=== PATIENT | female | born 1980 | race Caucasian/White ===

== ENCOUNTER 2020-06-17 09:32 | Emergency (ER) | payer MEDICAID ==
[~2020-06-17] VITALS: Ht 167.6 cm; Wt 74.4 kg
[2020-06-17 10:00] VITALS: BP 144/78
--- NOTE | 2020-06-17 10:03 | NUR ---
TO LOBBY A/W BED VIA W/C
[2020-06-17 10:15] VITALS: BP 144/78
--- NOTE | 2020-06-17 10:40 | NUR ---
SEEN AND EXAMINED BY BUSTER WITH ORDERS AND CARRIED OUT
[2020-06-17] MEDS ORDERED: diazePAM 5 MG TAB PO ONE (10:50)
[2020-06-17] MEDS ORDERED: KETOROLAC 30 MG/ML VIAL IM ONE (10:50)
[2020-06-17] MEDS ORDERED: LIDOCAINE/EPI 1% 1:100000 20 ML VIAL INJ ONE (10:55)
--- NOTE | 2020-06-17 11:10 | NUR ---
LAC AND STAPLE SET UP AT BED SIDE. ERMD NOTIFED
--- NOTE | 2020-06-17 11:36 | NUR ---
MEDICATED PER ERMDS ORDER, TOLERATED WELL.
[2020-06-17] MEDS ORDERED: MORPHINE SULFATE 4 MG/ML SYR IM ONE (11:55)
--- NOTE | 2020-06-17 15:13 | NUR ---
Patient discharged with v/s stable. Written and verbal after care instructions given and explained. Patient alert, oriented and verbalized understanding of instructions. Ambulatory with steady gait. All questions addressed prior to discharge. ID band removed. Patient advised to follow up with PMD. Rx of norkayla, bacitracin given. Patient educated on indication of medication including possible reaction and side effects. Opportunity to ask questions provided and answered. Addendum: 06/17/20 at 1513 by [facility] [id number]
== END 2020-06-17 15:13 | disposition home or self-care (01) ==
LOC: MED 09:32
DX: S32.019A Unspecified fracture of first lumbar vertebra, initial encounter for closed fracture (principal); S01.01XA Laceration without foreign body of scalp, initial encounter; S39.012A Strain of muscle, fascia and tendon of lower back, initial encounter; Z23 Encounter for immunization; Z98.890 Other specified postprocedural states; V49.60XA Unspecified car occupant injured in collision with unspecified motor vehicles in traffic accident, initial encounter; Y93.89 Activity, other specified; Y92.411 Interstate highway as the place of occurrence of the external cause; Y99.8 Other external cause status
CPT/HCPCS: 12001; 70450; 71045; 72131; 81025; 90471; 90715; 96372; 99285; J1885; J2001